=== PATIENT | female | born 1975 | race Two or more races ===

== ENCOUNTER 2024-06-17 12:15 | Day surgery (SDC) | payer MEDICAID, SELFPAY ==
[2024-06-16 14:57] VITALS: BMI 35.6
[2024-06-17] VITALS (10 sets, daily range): BP systolic 113–137; BP diastolic 54–83; PULSE 69–82; RESP 13–20; TEMP 36.2–36.8; O2SAT 92–100; BMI 37.1
[2024-06-17] MEDS: fentaNYL CIT INJ 50 mCg/ML AMP 2ML (ASD USE ONLY) IV (13:49)
[2024-06-17] MEDS: MIDAZOLAM INJ 1 MG/ML VIAL 2 ML (ASD USE ONLY) 2 MG IV (13:52)
== END 2024-06-17 14:50 | disposition home or self-care (01) ==
PROVIDERS: PCP Physician Assistant; Referring Provider Surgery; Visit Provider Surgery
PROC: 0DBE8ZX Excision of Large Intestine, Via Natural or Artificial Opening Endoscopic, Diagnostic (ICD-10-PCS; CPT 45380; principal; 2024-06-17 13:00)
DX: Z12.11 Encounter for screening for malignant neoplasm of colon (principal)
CPT/HCPCS: 45378; A4217; J2250; J3010

== ENCOUNTER 2024-09-24 21:54 | Emergency (ER) | payer MEDICAID, SELFPAY ==
--- NOTE | 2024-09-24 22:10 | EKG_ITS ---
[facility] Test Date: 2024-09-24 Pat Name: LITA BLACKWELL Department: Room: - Gender: Female [employer]: : 1975 Requested By: Jan Lopez Order Number: [id number] Reading MD: Jan Lopez Measurements Intervals [place] Rate: 74 P: 42 ME: 172 QRS: 11 QRSD: 106 T: 27 QT: 373 QTc: 415 Interpretive Statements SINUS RHYTHM No previous ECG available for comparison /store/S0/[id number]/ecg/[id number].pdf
[2024-09-24 22:15] VITALS: BP 143/84; PULSE 74; RESP 16; TEMP 36.6; O2SAT 99
--- NOTE | 2024-09-24 22:24 | PD.EDCHEST ---
ED Chest Pain RME/HPI General Chief Complaint: Chest Pain Stated Complaint: SOB, CHEST PAIN, TINGLING IN THE ARM Time Seen by Provider: 09/24/24 22:10 Arrival date/time: 09/24/24 21:54 RME / HPI RME / HPI narrative: This section includes all my notes and documentations, including HPI, PE, and ED course. Ab Sierra MD HPI: 48yo female with a history of DM, HTN, HLD presents to the ED for a chief complaint of mid-chest pain x 1 week, worse today. Patient states her pain has been intermittent, reporting it has progressively gotten worse over the last 1 week. She reports dizziness and headache. She works as a caregiver, needing to lift patients. Patient denies any cough, fever, chills, shortness of breath or any other associated symptoms. No other complaints reported. ROS: All negative except as documented in HPI. Physical Exam: General:? Alert and oriented.? No acute distress when remaining still. Eyes:? Conjunctivae and lids clear.? EOMI.? PERRL. ENT:? No nasal congestion.? Pharynx normal.? Tympanic membrane normal bilaterally.??? Neck:? Supple.? No carotid bruit.? No JVD.?? Heart:? RRR.? Lungs:? No respiratory distress.? Good air movement.? No rhonchi, wheezing, rales.?? Chest: Palpation of the anterior chest reproduces her pain. Abdomen:? Soft and nontender.? Legs:? No clubbing, cyanosis, edema.? Skin:? Warm and dry.?? Neuro:? Alert and oriented X 3.? Cranial Nerves II-XII grossly intact.? No peripheral motor deficits. I reviewed all diagnostic test results. My interpretation of the EKG is sinus rhythm with no acute ST?T changes. My interpretation of the chest x-ray is NAD. My review of the CT head report is NAD. My review of the CT chest/abdomen/pelvis report is NAD. Blood tests and urine tests unremarkable. At this point, diagnoses include chest wall pain. Treatment here included Tylenol with Codeine. Significant improvement noted. Recommended more outpatient cardiac workup. Based on my best medical judgment, made decision no further evaluation or treatment indicated at this time. Patient understands and agrees to the discharge instructions customized and printed, see below. Discharge instructions from Dr. Sierra: 1. After extensive evaluation, there is no life-threatening condition. Such as stroke or brain tumor or heart attack or pneumothorax (collapsed lung). 2. Your pain can be originating from the chest wall and not from an internal organ. The chest wall has many joints and muscles between the ribs, so sprains and strains are common. 3. Apply ice or heat if helpful. Tylenol/ibuprofen as needed. Tylenol with codeine for severe pain. 4. See a private doctor on 09/28/2024 for recheck and further care. To make sure there is no serious underlying heart condition, ask to help you get more tests for your heart that cannot be done here in the ER. Such as Holter Monitor (cardiac monitoring at home from a day to even a month), heart stress test (on treadmill or with medication), echocardiogram (imaging of your heart structures), heart catherization (checking for blockages in your heart arteries), and a referral to see a Lamp Decorator. Ask to review all test results and official radiology reports, to make sure you receive all necessary follow-ups and monitoring. 5. Seek immediate medical care with worsening or with any concerns. Ab Sierra MD Related Data Home Medications ?Medication ?Instructions ?Recorded ?Confirmed aspirin 81 mg chewable tablet 81 mg PO QDAY 04/03/19 06/16/24 empagliflozin 25 mg-linagliptin 5 1 tab PO DAILY 06/16/24 06/16/24 mg-metformin ER 1,000 mg tablet,24hr (Trijardy XR) fenofibrate nanocrystallized 145 145 mg PO DAILY 06/16/24 06/16/24 mg tablet insulin degludec 100 unit/mL (3 70 unit subcut QDAY 06/16/24 06/16/24 mL) subcutaneous pen (Tresiba FlexTouch U-100 insulin) metoprolol succinate 25 mg 25 mg PO DAILY 06/16/24 06/16/24 tablet,extended release 24 hr Previous Rx's ?Medication ?Instructions ?Recorded acetaminophen 300 mg-codeine 30 mg 2 tab PO Q8H PRN pain #20 tabs 09/25/24 tablet Allergies Allergy/AdvReac Type Severity Reaction Status Date / Time Penicillins Allergy Unknown UNKNOWN Verified 09/24/24 21:55 Review of Systems Review of Systems Systems Reviewed: All systems reviewed, normal except as documented Past Medical History Past Medical History NEUROLOGIC: Negative Neurological Disorders or Seizures CARDIAC: Positive Cardiac Disorders, Hypercholesterolemia and Hypertension; Negative Congestive Heart Failure RESPIRATORY: Negative Chronic Obstructive Pulmonary Disease (COPD) or Asthma GASTROINTESTINAL: Positive Gall Bladder Disease, Hiatal Hernia and Obesity; Negative Gastrointestinal Disorders GENITOURINARY: Negative Genitourinary Disorders or Renal Disease REPRODUCTIVE: Positive Previous Pregnancies MUSCULOSKELETAL: Positive Musculoskeletal Disorders (BONE PAIN) ENDOCRINE: Positive Endocrine Disorders and Diabetes Mellitus Type 2; Negative Diabetes Mellitus Type 1 HEMATOLOGIC: Negative Blood Disorders or Sickle Cell Disease OTHER HISTORY: Positive Hospitalization; Negative Blood Transfusions, Anesthesia Reactions or Cancer Family History FAMILY HISTORY: Negative Family Psychiatric Problems, Family Respiratory Disorders, Family Cardiac Disorders or Family Gastrointestinal Problems Surgical History SURGICAL: Positive Abdominal Surgery and Tubal Ligation; Negative Cardiac Surgery, Endocrine Surgery or Ear Surgery Social History SMOKING STATUS: Never smoker SUBSTANCE USE: does not use ED Exam Narrative Physical exam: As noted in HPI. Course Quality Measures none Orders Category Date Time Status EKG (ED ONLY) *Do not use* NOW Care 09/24/24 22:[address] chest abdomen pelvis wo Stat Exams 09/24/24 23:[address] head/brain wo con Stat Exams 09/24/24 23:58 Taken EKG (ED Only) Stat Exams 09/24/24 22:10 Draft XR chest 1V portable Stat Exams 09/24/24 22:39 Completed CBC Stat Lab 09/24/24 23:17 Completed CMP [Comprehensive Metabolic Panel] Stat Lab 09/24/24 23:17 Completed Free T4 (Free Thyroxine) Stat Lab 09/24/24 23:17 Completed HCG Qualitative,Urine Stat Lab 09/25/24 00:46 Completed HCG,Qualitative Serum Stat Lab 09/24/24 23:17 Completed Magnesium Stat Lab 09/24/24 23:17 Completed TSH [Thyroid Stimulating Hormone] Stat Lab 09/24/24 23:17 Completed Troponin I Stat Lab 09/24/24 23:17 Completed UA, C/S IF [Urinalysis, C/S if Indicated] Stat Lab 09/25/24 00:46 Completed ACETAMINOPHEN w/COD 300-30 [Tylenol w/Cod #3] Med 09/24/24 22:38 Discontinued 2 tab PO X1 ONE Vital Signs Vital signs: Vital Signs Temperature 97.8 F 09/24/24 22:15 Pulse Rate 74 09/24/24 22:15 Respiratory Rate 16 09/24/24 22:15 Blood Pressure 143/84 H 09/24/24 22:15 Pulse Oximetry (%) 99 09/24/24 22:15 Oxygen Delivery Method Room Air 09/24/24 22:15 Chest Pain MDM Narrative MDM Narrative:: Scribe Attestation: 09/24/24 - Estephania Wolff am scribing for and in the presence of Dr. Sierra. Patient data External records reviewed:: [facility] previous records (Per chart review, patient was seen here on 11/06/19 for acute chest wall pain.) Clinical information provided by:: patient Social determinants that could affect healthcare access:: none Patient has the following chronic illnesses:: DM, HTN, HLD How is presenting disease/condition affected by chronic disease/condition?: uneffected by Evaluation data The following diagnostics were reviewed and interpreted by me:: lab results, radiology exam(s) and EKG tracing(s) (My interpretation of the EKG: NSR (74 bpm) with no ST-T changes. Ab Sierra MD) Lab and/or radiology exams considered but not ordered:: none Interpretation Summary: Normal diagnostics Medications / Prescriptions Medications or Prescriptions considered but not ordered:: none Medication administrations:: Medication Administration History Discontinued Medications Acetaminophen/Codeine Phosphate (Acetaminophen W/Cod 300-30 Tablet) 2 tab PO X1 ONE Stop: 09/24/24 22:39 Last Admin: 09/24/24 23:55 Dose: 2 tab Documented By: MANNY Tylenol with Codeine Consultations Consultation(s) initiated? (list below): No Diagnosis Chest Pain Differential Diagnosis: pneumothorax, stable angina, unstable angina pectoris, atypical chest pain, st elevation myocardial infarction, costochondritis and other (CVA, brain tumor, chest wall strain, anxiety) Most likely diagnosis given after review of the tests above:: Chest wall pain Admission Indicated Admission indicated?: not indicated Explain why admission is indicated or not indicated:: With significant improvement, there was no indication for admission. Admission Request Was there a request for admission?: No Disposition Plan Disposition Plan: Discharge Discharge Attestation Discharge Attestation: The patient and all family members were given an opportunity to ask questions and understood the discharge instructions. Discharge instructions specifically effects, indications for sooner follow up or return to the emergency department, and the expected course of current diagnosis. Patient condition: Stable Discharge Plan Plan Patient Disposition: HOME (Self Care) Prescriptions/Referrals Prescriptions/Med Rec: New acetaminophen-codeine 300-30 mg tablet 2 tab PO Q8H MDD 6 PRN (Reason: pain) Qty: 20 0RF No Action aspirin 81 mg Tablet,Chewable 81 mg PO QDAY metoprolol succinate 25 mg tablet extended release 24 hr 25 mg PO DAILY Patient Comments: TAKE 1 TABLET BY MOUTH EVERY DAY fenofibrate nanocrystallized 145 mg tablet 145 mg PO DAILY Patient Comments: TAKE 1 TABLET BY MOUTH EVERY DAY insulin degludec [Tresiba FlexTouch U-100] 100 unit/mL (3 mL) insulin pen 70 unit SUBCUT QDAY Patient Comments: INJECT 70 UNIT BY SUBCUTANEOUS ROUTE EVERY DAY PER INSULIN PROTOCOL Trijardy XR 25-5-1,000 mg tablet, IR - ER, biphasic 24hr 1 tab PO DAILY Patient Comments: TAKE 1 TABLET BY MOUTH EVERY DAY IN THE MORNING Referrals: Mirna Crews PA-C [Primary Care Provider] - In 1 week Problem List Clinical Impression: Chest pain Patient/Caregiver Discharge Instructions Discharge Activity: activity as tolerated Education Materials: ED Chest Pain, Uncertain Cause, ED Chest Wall Strain (Child) Additional Instructions: Discharge instructions from Dr. Sierra: 1. After extensive evaluation, there is no life-threatening condition.? Such as stroke or brain tumor or heart attack or pneumothorax (collapsed lung). 2. Your pain can be originating from the chest wall and not from an internal organ.? The chest wall has many joints and muscles between the ribs, so sprains and strains are common.?? 3. Apply ice or heat if helpful.? Tylenol/ibuprofen as needed. Tylenol with codeine for severe pain. 4. See a private doctor on 09/28/2024 for recheck and further care. To make sure there is no serious underlying heart condition, ask to help you get more tests for your heart that cannot be done here in the ER.? Such as Holter Monitor (cardiac monitoring at home from a day to even a month), heart stress test (on treadmill or with medication), echocardiogram (imaging of your heart structures), heart catherization (checking for blockages in your heart arteries), and a referral to see a Lamp Decorator.? Ask to review all test results and official radiology reports, to make sure you receive all necessary follow-ups and monitoring. 5. Seek immediate medical care with worsening or with any concerns.?? Print Language: Polish Stand Alone Forms: Kim Award Info., Work/School Release, Patient Portal Info Letter
--- NOTE | 2024-09-24 22:39 | XR_ITS ---
Examination: PA chest single view Technique: Upright PA chest single view Exam date and time: September 24, 2024 10:53 PM Comparison November 06, 2019 Indications: Shortness of breath today. Findings: Normal heart size. Lungs are clear. The osseous structures are intact Impression: No active disease
[2024-09-24 23:30] LABS: Basophils % (Auto) 0 % (0-2.5); Eosinophils # (Auto) 0.1 Thou/mm3 (0.0-0.5); Eosinophils % (Auto) 1 % (0-10); Hematocrit 40.2 % (36.0-46.0); Hemoglobin 13.3 g/dL (12.0-16.0); Immature Granulocytes % (Auto) 0 % (0-0); Immature Granulocytes Auto 0.01 Thou/mm3 (0.00-0.00); Lymphocytes # (Auto) 3.2 Thou/mm3 (1.0-4.8); Lymphocytes % (Auto) 48 % (10-50); Mean Corpuscular HGB Conc 33.1 g/dl (31.0-37.0); Mean Corpuscular Hemoglobin 28.9 pg (25.0-35.0); Mean Corpuscular Volume 87 fL (80-100); Monocytes # (Auto) 0.4 Thou/mm3 (0.0-0.8); Monocytes % (Auto) 6 % (0-12); Neutrophils # (Auto) 2.9 Thou/mm3 (1.8-7.7); Neutrophils % (Auto) 44 % (37-80); Nucleated Red Blood Cell % 0 /100 WBC (0); Platelet Count 294 Thou/mm3 (140-440); RDW Standard Deviation 44.7 fL (36.4-46.3); Red Blood Count 4.61 Miln/mm3 (4.00-5.20); White Blood Count 6.6 Thou/mm3 (3.6-11.0)
[2024-09-24 23:51] LABS: Alanine Aminotransferase 24 U/L (10-49); Albumin, Serum 4.4 gm/dL (3.5-5.0); Albumin/Globulin Ratio 1.7 (1.2-2.2); Alkaline Phosphatase 44 U/L (46-116); Anion Gap 8 (7-16); Aspartate Amino Transferase 15 U/L (0-34); BUN/Creatinine Ratio 20 Ratio (12-20); Bilirubin,Total 0.5 mg/dL (0.3-1.2); Blood Urea Nitrogen 16 mg/dL (9-23); Calcium 9.2 mg/dL (8.3-10.6); Calcium (Corrected) 9.2 mg/dL (8.5-10.1); Carbon Dioxide 25.2 mMol/L (20.0-31.0); Chloride 109 mMol/L (98-107); Creatinine (Component) 0.8 mg/dL (0.6-1.3); Free T4 (Free Thyroxine) 1.23 ng/dL (0.89-1.76); Globulin 2.6 gm/dL (2.3-3.5); Glucose 122 mg/dL (74-106); Magnesium 1.8 mg/dL (1.6-2.6); Osmolality,Calculated 285 (275-295); Potassium 3.5 mMol/L (3.4-5.1); Sodium 142 mMol/L (136-145); Thyroid Stimulating Hormone 5.03 uIU/mL (0.55-4.78); Troponin I < 0.002 ng/mL (0.0-0.045); eGFR > 60 See Note
[2024-09-24] MEDS: ACETAMINOPHEN w/COD 300-30 TABLET 2 TAB PO (23:55)
--- NOTE | 2024-09-24 23:58 | XR_ITS ---
Examination: CT chest, without intravenous contrast. CT abdomen, without intravenous contrast. CT pelvis, without intravenous contrast. 2-D sagittal and coronal reconstructions. 3-D reconstructions. Date and time of exam:September 25, 2024 0152 hrs. Indications: Onset chest abdominal pain today CTDI vol (mgy) 15.7 DLP (MGycm)1113 Technique: Multiple CT images, 3.0 mm slice thickness, obtained chest, abdomen, pelvis, with the high-resolution 64 slice scanner.. Sagittal and coronal 2-D reconstructions are obtained. 3-D reconstructions Low dose protocols were performed. One or more of the following dose reduction techniques were used; automated exposure control, adjustment of the mA and/or KV according to patient size, use of iterative reconstruction technique. Findings: No thoracic aortic aneurysm dilatation Pulmonary artery segments are not enlarged. Date the paratracheal tracheobronchial or bronchopulmonary adenopathy Subtle opacity both lung bases consistent with pneumonia No focal liver or splenic lesions Absent gallbladder No pancreatic or adrenal mass No renal or renal calculi, no hydronephrosis No pericecal inflammatory change No pelvic mass Urinary bladder intact Intact osseous structures Impression: Mild bibasilar pneumonia Normal appendix No renal or ureteral calculi No bowel obstruction diverticulitis or free air
--- NOTE | 2024-09-24 23:58 | XR_ITS ---
Examination: CT brain head without contrast. 2-D sagittal coronal reconstructions Date and time of exam:September 25, 2024 0151 hrs. Indications: Onset dizziness today CTDI: vol (mGy):46.5 DLP: (mGycm):976 Technique: Multiple CT axial sections of the brain have been obtained, 5 mm slice thickness. Contrast has not been administered. 2-D sagittal, coronal reconstructions have been obtained Low dose protocols were performed. One or more of the following dose reduction techniques were used; automated exposure control, adjustment of the mA and/or KV according to patient size, use of iterative reconstruction technique. Findings: No significant ventricular enlargement. Intra-axial or extra-axial hemorrhage density is not seen. No mass effect or midline shift Basal cisterns are not remarkable. Fourth ventricle is midline. Cranial vault intact. Impression: Negative for acute hemorrhage, mass effect or midline shift Advise clinical correlation follow-up accordingly
[2024-09-25 00:23] LABS: HCG,Qualitative Serum Negative
[2024-09-25 00:57] LABS: Collection Type, Urine Clean Catch
[2024-09-25 01:08] LABS: HCG Qualitative,Urine Negative
[2024-09-25 01:09] LABS: Bilirubin,Urine Negative (Negative); Blood,Urine Trace (Negative); Clarity,Urine Clear (Clear/Hazy); Color,Urine Lt-Yellow (Lt Yel-Yel); Culture Indicated,Urine Not Indicated; Glucose, Urine 4+ (Negative); Ketones,Urine Negative (Negative); Leukocyte Esterase,Urine Negative (Negative); Nitrite,Urine Negative (Negative); PH,Urine 5.5 (5.0-7.0); Protein,Urine Negative (Neg - Trace); RBC,Urine 2 /hpf (0-3); Specific Gravity,Urine 1.044 (1.001-1.035); Squamous Epithelial Cell,Urine 3 /hpf (0-5); Urobilinogen,Urine Negative mg/dL (0.0-1.0); WBC,Urine 3 /hpf (0-5)
[2024-09-25 01:13] VITALS: BP 121/76; PULSE 71; RESP 18; TEMP 36.7; O2SAT 97
--- NOTE | 2024-09-25 02:18 | PRELIM_ITS ---
CT scan of the head without intravenous contrast (axial sections with sagittal and coronal reformats) September 25, 2024 0151 hours Clinical History: Dizziness No prior study is available for comparison. Findings: There is no evidence of intracranial hemorrhage, mass effect or midline shift. There is mild volume loss. The calvarium is unremarkable. The mastoid air cells and the visualized paranasal sinuses are clear. Impression: No evidence of intracranial hemorrhage, mass effect or midline shift. Mild volume loss. Report Electronically Signed By: Yobani Carranza 09/25/2024 2:17:52 AM [EST]
--- NOTE | 2024-09-25 03:06 | PRELIM_ITS ---
CT scan of the chest, abdomen and pelvis without intravenous contrast (axial sections with sagittal and coronal reformats) September 25, 2024 0152 hours Clinical History: Chest and abdominal pain No prior study is available for comparison. Findings: Bibasilar dependent atelectasis/infiltrates. There is no pleural effusion or pneumothorax. The aorta is unremarkable on this noncontrast study. No evidence of mediastinal mass or lymphadenopathy. There is no pericardial effusion. The gallbladder is surgically absent. The liver, spleen, pancreas, adrenals and kidneys are unremarkable on this noncontrast study. No evidence of bowel dilatation. Moderate amount of fecal material is present in the colon. The appendix is within normal limits. The urinary bladder is not well distended. There is no free fluid or free air. Mild degenerative changes are identified in the spine. Impression: Bibasilar dependent atelectasis/infiltrates. No evidence of bowel dilatation, free air or abscess. Report Electronically Signed By: Yobani Carranza 09/25/2024 3:05:30 AM [EST]
== END 2024-09-25 03:22 | disposition home or self-care (01) ==
PROVIDERS: Emergency Provider Emergency Medicine; PCP Physician Assistant
DX: R07.89 Other chest pain (principal); R42 Dizziness and giddiness; R20.2 Paresthesia of skin; R06.02 Shortness of breath; R10.9 Unspecified abdominal pain; I10 Essential (primary) hypertension; E78.00 Pure hypercholesterolemia, unspecified
CPT/HCPCS: 36415; 70450; 71045; 71250; 74176; 80053; 81001; 81025; 83735; 84439; 84443; 84484; 84703; 85025; 93005; 99284; A9270